=== PATIENT | male | born 1960 | race African-American/Black ===

== ENCOUNTER 2020-09-29 07:20 | Emergency (ER) | payer MEDICARE, MEDICAID ==
[~2020-09-29] VITALS: Ht 175.3 cm; Wt 82.0 kg
[~2020-09-29 07:20] MED LIST: ASPI-986; AZIT500T3 PO; COMBIVENT; DARU600T; DARU800T; ETRA100T; ETRA200T; FERR325T23; HYDR2TAB4 PO; HYDR4TAB4; ISENTRESS; NORV1; OMEP20CA4 PO; OXYC-582; RALT400T; SOMA6VIA; SULF-165; TEST200V16; VALS1TAB34
[2020-09-29] MEDS ORDERED: SODIUM CHLORIDE 0.9% 1,000 ML IV ONE (08:00)
[2020-09-29 08:25] LABS: BASOPHILS % 0.4 % (0.0-2.0); EOSINOPHILS % 1.3 % (0.0-5.0); HEMATOCRIT. 56.2 % (42.0-52.0); HEMOGLOBIN. 18.5 g/dL (14.0-18.0); LYMPHOCYTES % 17.2 % (20.0-50.0); MEAN CORPUSCULAR HEMOGLOBIN 31.8 pg (28.0-32.0); MEAN CORPUSCULAR VOLUME 96.5 fL (80.0-94.0); MEAN PLATELET VOLUME 7.5 fl (7.4-10.4); MONOCYTES % 10.9 % (2.0-8.0); NEUTROPHILS % 70.2 % (40.0-76.0); PLATELET 184 x1000/uL (130-400); RED BLOOD CELL COUNT 5.82 mill/uL (4.7-6.1); RED CELL DISTRIBUTION WIDTH 17.1 % (11.6-14.6)
[2020-09-29 08:30] LABS: CHLORIDE 101 mEq/L (98-107)
[2020-09-29] MEDS ORDERED: IBUP-2028 MT (11:57)
[2020-09-29 13:00] LABS: CLARITY URINE CLEAR (CLEAR); COLOR URINE DARK YELLOW (YELLOW); KETONES URINE NEGATIVE (NEGATIVE); LEUKOCYTE ESTERASE URINE NEGATIVE (NEGATIVE); NITRITE URINE NEGATIVE (NEGATIVE); OCCULT BLOOD URINE NEGATIVE (NEGATIVE); PH URINE 5.5 (4.5-8.0); PROTEIN URINE NEGATIVE (NEGATIVE); SPECIFIC GRAVITY URINE 1.021 (1.005-1.030)
[2020-09-29 13:30] VITALS: BP 121/72
== END 2020-09-29 14:26 | disposition home or self-care (01) ==
LOC: ER 08:38
DX: K52.9 Noninfective gastroenteritis and colitis, unspecified (principal); I10 Essential (primary) hypertension; Z79.899 Other long term (current) drug therapy
CPT/HCPCS: 36415; 71045; 74176; 80053; 81003; 83690; 85025; 93005; 96360; 96361; 99285; J7030